=== PATIENT | male | born 1965 | race Caucasian/White ===

== ENCOUNTER 2019-05-23 09:02 | Day surgery (SDC) | payer MEDICAID ==
[2019-05-23] MEDS ORDERED: PROPOFOL 10 MG/ML VIAL IV ONE (09:03)
[2019-05-23] MEDS ORDERED: LIDOCAINE 2% MDV (20MG/ML) 20ML VIAL IV ONE (09:03)
--- NOTE | 2019-06-01 08:01 | Operative Note ---
OPERATION: COLONOSCOPY to the cecum. INDICATION: History of adenomatous polyps. Last colonoscopy was approximately 3 years ago. He returns at this time for surveillance. He had multiple tubular adenomas. ANESTHESIA: Intravenous sedation was administered by the department of anesthesiology and included Diprivan titrated to effect. PROCEDURE: Following informed consent from this alert individual including a discussion of the risks and benefits of the procedure and an opportunity for the patient to ask questions, the patient was in the left lateral decubitus position. A digital rectal examination was performed. No abnormalities were noted. Following this, the Olympus [id number] video colonoscope was inserted into the rectum without resistance. The rectal mucosa had a normal appearance with normal folds and distensibility. The colonoscope was advanced up through the colon to the level of the cecum without much difficulty. Scattered diverticula were noted in the sigmoid region. The colon preparation overall was good. The cecum was well defined by noting the appendiceal orifice and ileocecal valve. From the base of the cecum, the colonoscope was then withdrawn. Again diverticulosis was noted in the left colon. No other changes appreciated. retroflexion in the rectum was endoscopically normal. The endoscope was straightened and withdrawn. The patient tolerated the procedure well and was returned to the recovery area in stable condition. IMPRESSION: 1. Scattered left colonic diverticulosis. 2. Otherwise unremarkable colonoscopy to the cecum. RECOMMENDATIONS: The patient was advised to have recheck colonoscopy in 5 years' time or sooner should problems arise. Followup will be with Horace Nathan DO, as well. As always, thank you for allowing me to participate in the care of your patient. KWESI
== END 2019-05-23 10:50 | disposition home or self-care (01) ==
LOC: HOP 09:02
PROVIDERS: ATTEND Internal Medicine Gastroenterology
DX: Z09 Encounter for follow-up examination after completed treatment for conditions other than malignant neoplasm (principal); Z86.010 Personal history of colon polyps; K57.30 Diverticulosis of large intestine without perforation or abscess without bleeding